=== PATIENT | male | born 1975 | race African-American/Black ===

== ENCOUNTER 2017-04-24 15:21 | Emergency (ER) | payer SELFPAY ==
[2017-04-24] MEDS ORDERED: ACETAMINOPHEN 325 MG TABLET PO ONE (15:51)
--- NOTE | 2017-04-24 15:53 | ER Document Report ---
ED General Pain - General Chief Complaint: Pain All Over Stated Complaint: BODY PAIN Time Seen by Provider: 04/24/17 15:35 Mode of Arrival: Ambulatory Information source: Patient Notes: Patient is a 41-year-old male who presents to the ER today for 2 days of body aches, hot flashes, frequent urination, 2 episodes of vomiting today, cough with productive mucus, chills and 1 day of diarrhea. Patient states he did not get his flu shot this year. He denies any burning with urination or blood in his urine. He has been trying DayQuil and Mucinex DM was feeling a little better after those medications. He denies any difficulty breathing or shortness of breath. TRAVEL OUTSIDE OF THE [place] IN LAST 30 DAYS: No - Related Data Allergies/Adverse Reactions: No Known Allergies Allergy (Verified 04/24/17 15:22) Past Medical History - General Information source: Patient - Social History Smoking Status: Never Smoker Family History: Reviewed & Not Pertinent Review of Systems - Review of Systems Constitutional: See HPI EENT: See HPI Cardiovascular: No symptoms reported Respiratory: See HPI Gastrointestinal: No symptoms reported Genitourinary: No symptoms reported Male Genitourinary: No symptoms reported Musculoskeletal: No symptoms reported Skin: No symptoms reported Hematologic/Lymphatic: No symptoms reported Neurological/Psychological: No symptoms reported Physical Exam - Vital signs Vitals: Temp Pulse Resp BP Pulse Ox 101.3 F H 93 16 147/92 H 100 04/24/17 15:26 04/24/17 15:26 04/24/17 15:26 04/24/17 15:26 04/24/17 15:26 - Notes Notes: PHYSICAL EXAMINATION: GENERAL: Mildly ill-appearing, but in no acute distress. HEAD: Atraumatic, normocephalic. EYES: Pupils equal round and reactive to light, extraocular movements intact, sclera anicteric, conjunctiva are normal. ENT: ear canals without erythema or foreign body, TMs pearly méndez with good bony landmarks, nares patent, oropharynx clear without exudates. Moist mucous membranes. NECK: Normal range of motion, supple without lymphadenopathy LUNGS: CTAB and equal. No wheezes rales or rhonchi. HEART: Regular rate and rhythm without murmurs ABDOMEN: Soft, no tenderness. No guarding, no rebound BACK: no vertebral tenderness, normal ROM GI/: no CVA tenderness EXTREMITIES: Normal range of motion, no pitting edema. No cyanosis. NEUROLOGICAL: Cranial nerves grossly intact. Normal sensory/motor exams. PSYCH: Normal mood, normal affect. SKIN: Warm, Dry, normal turgor, no rashes or lesions noted Course - Re-evaluation Re-evalutation: 04/24/17 17:44 Influenza negative, urinalysis negative for infection, patient feels "87% better " after Tylenol only here in the emergency department. We will send him home with symptomatic treatment for viral syndrome. - Vital Signs Vital signs: Temp Pulse Resp BP Pulse Ox 99.9 F 82 16 146/82 H 98 04/24/17 18:20 04/24/17 18:20 04/24/17 18:20 04/24/17 18:20 04/24/17 18:20 - Laboratory Laboratory results interpreted by me: 04/24/17 16:30 Urine Protein 30 H Urine Glucose (UA) 50 H Urine Urobilinogen 2.0 H Discharge - Discharge Clinical Impression: Viral syndrome Condition: Stable Disposition: HOME, SELF-CARE Additional Instructions: Return immediately for any new or worsening symptoms. Follow up with primary care provider, call tomorrow to make followup appointment. Prescriptions: Hydrocodone Bit/Homatropine [Hycodan Syrup 5-1.5 mg/5 ml Ud Cup] 5 ml PO Q4HP PRN #120 ml PRN Reason: Ondansetron [Zofran Odt 4 mg Tablet] 1 - 2 tab PO Q4H PRN #30 tab.rapdis PRN Reason: For Nausea/Vomiting Referrals: AYAAN RENO MD [Primary Care Provider] - Follow up as needed
[2017-04-24 16:59] LABS: APPEARANCE,URINE CLEAR; BILIRUBIN,URINE NEGATIVE (NEGATIVE); COLOR,URINE STRAW; GLUCOSE, URINE 50 mg/dL (NEGATIVE); KETONES,URINE NEGATIVE (NEGATIVE); LEUKOCYTE ESTERASE,URINE NEGATIVE (NEGATIVE); NITRITE,URINE NEGATIVE (NEGATIVE); PROTEIN,URINE 30 mg/dL (NEGATIVE); URINE SPECIFIC GRAVITY 1.008
[2017-04-24 17:08] LABS: A TYPE INFLUENZA AG NEGATIVE (NEGATIVE); B INFLUENZA AG NEGATIVE (NEGATIVE)
[2017-04-24 18:23] VITALS: BP 146/82
== END 2017-04-24 18:20 | disposition home or self-care (01) ==
LOC: ER 15:21
DX: B34.9 Viral infection, unspecified (principal); R35.0 Frequency of micturition; R11.10 Vomiting, unspecified; R05 Cough; R19.7 Diarrhea, unspecified; R68.83 Chills (without fever); R52 Pain, unspecified
CPT/HCPCS: 81001; 87804; 99283